=== PATIENT | female | born 1975 | race Caucasian/White ===

== ENCOUNTER 2017-03-19 08:25 | Day surgery (SDC) | payer OTHER ==
[2017-03-12 10:30] VITALS: BMI 26.6
--- NOTE | 2017-03-18 09:41 | HP ---
Admitting History and Physical - Primary Care Physician PCP: Leonidas Lamb - Admission Chief Complaint: Right breast cancer History of Present Illness: 41 year old premenapausal female with strong family H/O breast cancer. The patient herself felt right breast density and underwent mammography and US which showed 1.5x1.5x1.5 cm right breast mass at 11:00 8 cm FN. US core bx 01/2017 showed ductal carcinoma ER/OH positve HEr 2 negative. She has H/O bilateral saline implants. MRI breast 02/07/2017 showed right breast spiculated mass at 11:00 8 cm FN and no contralateral or mutifocal dz. History Source: Patient Limitations to Obtaining History: No Limitations - Past Medical History Pulmonary: Yes: Asthma (related to allergies) ...LMP: 02/28/17 ...: (MADE AWARE URINE SAMPLE NEEDED) ENT: Yes: Other (seasonal allergies) - Past Surgical History Additional Past Surgical History: Bilateral breast augmentation 2002-silicone - Advance Directives Advance Directives: Yes: Health Care Proxy - Smoking History Smoking history: Former smoker Have you smoked in the past 12 months: No - Alcohol/Substance Use Hx Alcohol Use: Yes (social) Home Medications - Allergies Allergies/Adverse Reactions: Allergies Allergy/AdvReac Type Severity Reaction Status Date / Time No Known Allergies Allergy Verified 03/12/17 11:03 - Home Medications Home Medications: Ambulatory Orders Albuterol Sulfate Inhaler - [Ventolin Hfa Inhaler -] 1 - 2 inh PO PRN PRN Loratadine [Claritin] 10 mg PO DAILY 03/12/17 Family Disease History - Family Disease History Family Disease History: CA: Grandparent (paternal GM lung ca 56) Other Family History: pat aunt breast ca 55. pat [place] breast ca 60. pat GF CRC 52. mat aunt x2 breast ca 62 and 74 Physical Examination Constitutional: Yes: Well Nourished Breast(s): Yes: Other (fairly ptotic D cups with augmentation implants palpable 1.5 cm density right breast upperr outer quadrant of right implant no left breast densities no adenopathy bilaterally) Problem List - Problems (1) Breast cancer, right breast Code(s): C50.911 - MALIGNANT NEOPLASM OF UNSP SITE OF RIGHT FEMALE BREAST Qualifiers: Breast location: upper outer quadrant of breast Patient sex: female Qualified Code(s): C50.411 - Malignant neoplasm of upper-outer quadrant of right female breast Assessment/Plan Right breast wide excision ,mammogram needle localization, lymphoscintogram , sentenel node biopsy, possible axillary node dissection , intraop radiaition and exchange of implant /Dr Callaway
[2017-03-19] MEDS ORDERED: ISOSULFAN BLUE 10 MG/ML VIAL SQ ONE (13:04)
[2017-03-19] MEDS ORDERED: GENTAMICIN SO4 80 MG/2 ML VIAL ONE (13:04)
[2017-03-19] MEDS ORDERED: GUM MASTIC/STORAX/MSAL/ALCOHOL 1 DRP DROPSBTL MC ONE (13:04)
[2017-03-19] MEDS ORDERED: LIDOCAINE HCL 1%, 10 MG/ML (20ML VIAL) ONE (13:04)
[2017-03-19] MEDS ORDERED: ceFAZolin SODIUM 1 GM VIAL ONE ×2 (13:04→13:08)
[2017-03-19] MEDS ORDERED: PROPOFOL 20 ML ONE ×2 (13:05)
[2017-03-19] MEDS ORDERED: MIDAZOLAM HCL 2 MG/2 ML SINGLE DOSE VIAL ONE (13:05)
[2017-03-19] MEDS ORDERED: LIDOCAINE HCL/PF 2% SDV 5ML VIAL ONE (13:42)
[2017-03-19] MEDS ORDERED: ONDANSETRON 4 MG/2 ML VIAL ONE (13:48)
[2017-03-19] MEDS ORDERED: DEXAMETHASONE SOD PHOSPHATE 4 MG/1 ML VIAL ONE ×2 (13:48→13:49)
[2017-03-19] MEDS ORDERED: KETOROLAC TROMETHAMINE 30 MG/1 ML VIAL IVPUSH PRN (15:14)
[2017-03-19] MEDS ORDERED: DEXTROSE 5%-0.45% SALINE 1,000 ML IV SCH (15:15)
[2017-03-19] MEDS ORDERED: ONDANSETRON 4 MG/2 ML VIAL IVPB PRN (15:55)
[2017-03-19] MEDS ORDERED: DESFLURANE GAS 240 ML BOTTLE IH ONE (16:23)
[2017-03-19] MEDS ORDERED: oxyCODONE HCL 5 MG TABLET PO PRN ×2 (16:54)
[2017-03-19] MEDS ORDERED: KETOROLAC TROMETHAMINE 30 MG/1 ML VIAL ONE (16:54)
[2017-03-19] MEDS ORDERED: PROMETHAZINE HCL 25 MG/1 ML VIAL IVPUSH PRN (16:54)
[2017-03-19 19:15] VITALS: TEMP 98
[2017-03-19] MEDS ORDERED: PROMETHAZINE HCL 25 MG/1 ML VIAL ONE (19:17)
[2017-03-19 19:41] VITALS: BP 136/83; PULSE 72
--- NOTE | 2017-03-20 08:03 | OP ---
DATE OF OPERATION: 03/19/2017 PREOPERATIVE DIAGNOSIS: Right breast cancer. POSTOPERATIVE DIAGNOSIS: Right breast cancer. PROCEDURE: Post lumpectomy, intraoperative radiotherapy for right breast cancer. ATTENDING SURGEON: Leonidas Lamb MD ANTISQUEAK APPLIER/RADIATION ONCOLOGIST: Anthony Sibley MD ANESTHESIA: General. COMPLICATIONS: None. INDICATIONS: The patient is a 41-year-old woman with a biopsy-proven infiltrating ductal carcinoma, stage 1A, T1c, N0, M0, ER/MT-positive, HER2-negative right breast cancer. She is entered on the target B study. DESCRIPTION OF PROCEDURE: Dr. Lamb performed right lumpectomy and sentinel node biopsy, which he has dictated. After excision of additional margins, the cavity was sized at 4.5-cm diameter spherical applicator. The applicator was placed in the operative cavity at the 11 o'clock aspect of the right breast, and the surrounding breast tissue were cinched around the applicator with a Vicryl pursestring suture. A clinical and ultrasound simulation was performed to ensure that the applicator was located within the operative bed with close apposition to the surrounding breast tissue to the surface of the applicator. Saline-soaked gauze was placed between the skin and breast tissue to ensure adequate separation between the skin and the applicator. Ultrasound measurements confirm the minimum separation of 1.66 cm at the 12 o'clock aspect of the applicator. The applicator was pulled away from the chest wall to minimize dose to the underlying organs. Shielding material was placed over the breast to reduce scattered radiation. The patient received a dose of 20 Gy prescribed at 0 mm from the applicator surface with a 50KV x-ray using the Intrabeam system. Prior to the treatment, the system was double-checked by our physicist with appropriate quality control head measures. The time required for the treatment was 36 minutes and 30 seconds at a dose rate of .550 Gy per minute. When the treatment was completed, a survey of the patient in the room confirmed that the Intrabeam source was off. There were no complications or unexpected interruptions. Dr. Lamb removed the radiation applicator from the patient and completed the surgery. Patient will be discharged to the recovery room and follow up with us in a few weeks. ANTHONY SIBLEY M.D. [id number] cc: Leonidas Lamb MD, and Megan Higgins MD [facility]
--- NOTE | 2017-03-20 13:01 | OP ---
DATE OF OPERATION: 03/19/2017 PREOPERATIVE DIAGNOSIS: Right breast cancer, upper outer quadrant. POSTOPERATIVE DIAGNOSIS: Right breast cancer, upper outer quadrant. PROCEDURE: Right breast partial mastectomy with mammographic needle localization and right axillary sentinel lymph node biopsy with intraoperative radiation as part of the Targit-B trial with mastopexy and implant exchange by plastic surgery. ANESTHESIA: General laryngeal mask airway anesthesia. PRIMARY SURGEON: Margi Leiva MD TENSIONING MACHINE OPERATOR: JUANA Sarah PRIMARY SURGEON FOR THE RIGHT BREAST MASTOPEXY AND IMPLANT EXCHANGE WITH PLACEMENT OF ALLODERM: Margi Callaway MD HIS TENSIONING MACHINE OPERATOR: JUANA Paez COMPLICATIONS: There were no complications. INDICATIONS: Briefly, the patient is a 41-year-old premenopausal white female of [place] and [place] descent. She has a family history with 2 maternal aunts who had breast cancer at ages 62 and 74. She also has a paternal aunt who had breast cancer at age 55 and a paternal great-aunt had breast cancer at age 60. The patient was found to have a mass in the upper outer aspect of the right breast back in December of 2016. Mammography and ultrasound confirmed a 1.5 cm density in the right breast at the 11 o'clock region. An ultrasound core biopsy showed a low grade infiltrative ductal cancer which was ER/AK positive and HER2/mj negative. MRI showed localized disease measuring about 1.2 cm. She did undergo genetic testing in 2012, which was negative. The patient was advised on a wide excision, and given the fact that she had prior augmentation surgery, she was seen by plastic surgery, and the patient would have slight reduction at the time of the surgery, and we decided on an implant exchange since we knew she would require radiation, and decided also to place AlloDerm. The patient was told about intraoperative radiation and was a candidate for the Targit-B trial, which she was entered in and was randomized intraoperative radiation. DESCRIPTION OF PROCEDURE: The patient was brought in for the surgery on March 19, 2017, and underwent a mammographic needle localization of the clip in question and underwent a lymphoscintigraphy at [place] and was brought to the holding area at [place]. In the holding area, site verification was made and informed consent was obtained. She did sign the consent for the Targit-B trial and was marked preoperatively by the plastic surgeon. She was brought into the operating room and laid on the OR table in the supine position. Venodynes were placed on the lower extremities. She received 1 g of Ancef prior to incision. She underwent general laryngeal mask airway anesthesia, and 3 mL of lymphazurin blue were injected intradermally and peritumorally around the needle localization site, and massage was instituted, and both breasts were sterilely prepped and draped in the usual fashion. At this point, the sentinel node was first performed. An incision was made just above the hair-bearing area of the right axilla, and dissection was undertaken, and a blue hot node was easily found in the level 1 region of the right axilla with a 10-second gamma count of 2,280. No other blue or hot nodes were found, and background count after removal of the sentinel node was 347. Hemostasis was achieved. At this point, the wide excision was undertaken. We did this through a reduction pattern incision, which was performed by Dr. Callaway and using that incision, we were able to undermine up to the needle localization site in the upper outer aspect of the right breast and performed a large wide excision to help with the mastopexy. The tissue was completely removed from around the wire all the way down to the pectoralis major muscle in the upper outer aspect of the right breast. The tissue was removed with the wire in the middle of the specimen. It was oriented with a long-lateral short-superior suture, and the specimen radiograph showed removal of the clip in question with the cancer in the middle of the specimen. Separate margins were taken on the superior, inferior, medial, lateral, anterior, as well as deep and extra deep margins with sutures marking the biopsy cavity side. Piece of the muscle was taken posteriorly. At this point, intraoperative radiation was performed using a 4.5-cm Intrabeam device. The breast tissue was pursestringed around the device which was placed in the wound at the area of the excised cancer. Ultrasound was used to confirm the device was more than 1 cm from all quadrants of the skin. Intraoperative radiation was then performed for about 35 minutes without complications, and the device was removed. Hemostasis was achieved, and the wound was copiously irrigated. At this point, Dr. Callaway performed the mastopexy. He had already removed the implant prior to the radiation, and that was replaced with a new implant and AlloDerm was placed over the defect in the pectoralis major muscle. The AlloDerm was sutured into the pectoralis major muscle by plastic surgery. A drain was placed in the area of the wide excision, brought through a separate stab incision on the lateral aspect of the chest well, and sutured in place using 3-0 nylon sutures. The wound closure will be dictated separately by Dr. Callaway as well as the mastopexy. The patient was placed in a surgical bra postoperatively, and laryngeal mask airway tube was removed, and she will be recovered and discharged home the same day once discharge criteria are met. She is to follow up in the office in 1 week for formal wound evaluation and pathology check. Estimated blood loss was about 50 mL, and she was hemodynamically stable throughout with correct sponge and needle counts at the end of the case. MARGI LEIVA M.D. [id number]
--- NOTE | 2017-03-21 15:56 | PATH ---
Surgical Pathology Report Patient Name: [facility]. Rec. #: [id number] /Age/Gender: 1975 (Age: 41) / F Account: [id number] Location: [facility] AMBULATORY Taken: 03/19/2017 Received: 03/20/2017 Reported: 03/21/2017 Physicians: Leonidas Lamb M.D. Specimen(s) Received A: SENTINEL LYMPH NODE #1 RIGHT AXILLA B: RIGHT BREAST WIDE EXCISON C: RIGHT BREAST SUPERIOR MARGIN D: RIGHT BREAST INFERIOR MARGIN E: RIGHT BREAST MEDIAL MARGIN F: RIGHT BREAST LATERAL MARGIN G: RIGHT BREAST ANTERIOR MARGIN H: RIGHT BREAST DEEP MARGIN I: RIGHT BREAST SUPERIOR DEEP MARGIN J: RIGHT BREAST EXPLANT Clinical History Invasive right breast cancer UOQ Final Diagnosis A. LYMPH NODE, RIGHT AXILLARY SENTINEL NODE #1, EXCISION: ONE BENIGN LYMPH NODE (0/1) BY STANDARD HEMATOXYLIN AND EOSIN STAIN (MULTIPLE LEVELS EXAMINED). B. RIGHT BREAST, WIDE EXCISION WITH WIRE LOCALIZATION: INVASIVE DUCTAL CARCINOMA, CHRIS GRADE 1 OF 3 (TUBULE SCORE 1 OF 3, NUCLEAR GRADE 2 OF 3, MITOTIC SCORE 1 OF 3, TOTAL 4 OF 9), MEASURING 1.4 CM IN GREATEST DIMENSION. DUCTAL CARCINOMA IN SITU (DCIS), INTERMEDIATE NUCLEAR GRADE, CRIBRIFORM AND SOLID PATTERNS WITH CENTRAL NECROSIS AND ASSOCIATED CALCIFICATION PRESENT (EXTENSIVE INTRADUCTAL COMPONENT). INVASIVE DUCTAL CARCINOMA IS 0.4 CM FROM THE DEEP AND ANTERIOR ASPECTS OF THIS SPECIMEN (SEE SPECIMENS C-I FOR FINAL MARGINS). DCIS IS 0.5 CM FROM THE DEEP AND ANTERIOR ASPECTS OF THIS SPECIMEN (SEE SPECIMENS C-I FOR FINAL MARGINS). CHANGES CONSISTENT WITH PRIOR BIOPSY SITE PRESENT. NO LYMPH-VASCULAR INVASION IDENTIFIED. MINUTE FIBROADENOMA PRESENT. REMAINING BREAST TISSUE WITH FIBROCYSTIC CHANGES INCLUDING STROMAL FIBROSIS, DUCTAL DILATATION, AND CYSTIC APOCRINE METAPLASIA. C. RIGHT BREAST, SUPERIOR MARGIN, EXCISION: BENIGN BREAST TISSUE. D. RIGHT BREAST, INFERIOR MARGIN, EXCISION: SMALL FIBROADENOMA, AND FIBROCYSTIC CHANGES INCLUDING STROMAL FIBROSIS, DUCTAL DILATATION, AND CYSTIC AND METAPLASIA. E. RIGHT BREAST, MEDIAL MARGIN, EXCISION: BENIGN BREAST TISSUE. F. RIGHT BREAST, LATERAL MARGIN, EXCISION: BENIGN BREAST TISSUE WITH FIBROCYSTIC CHANGES INCLUDING STROMAL FIBROSIS AND DUCTAL DILATATION. G. RIGHT BREAST, ANTERIOR MARGIN, EXCISION: BENIGN FIBROFATTY TISSUE. H. RIGHT BREAST, DEEP MARGIN, EXCISION: BENIGN SKELETAL MUSCLE AND ADIPOSE TISSUE. I. RIGHT BREAST, SUPERIOR DEEP MARGIN, EXCISION: BENIGN SKELETAL MUSCLE AND ADIPOSE TISSUE WITH AREAS OF FIBROSIS CONSISTENT WITH BREAST IMPLANT CAPSULE. J. CONVENIENCE STORE CLERK, RIGHT BREAST, REMOVAL: BREAST IMPLANT (GROSS ONLY). Comment: See prior slide review [id number]. Comments Breast Invasive Carcinoma: Surgical Pathology Cancer Case Summary Based on AJCC/UICC TNM, 7th edition Procedure _X__ Excision with image-guided localization Lymph Node Sampling (select all that apply) (required only if lymph nodes are present in the specimen) _X__ [place] lymph node(s) Specimen Laterality _X__ Right Tumor Size: Size of Largest Invasive Carcinoma Greatest dimension of largest focus of invasion over 1 mm: 14 mm Tumor Focality _X__ Single focus of invasive carcinoma Macroscopic and Microscopic Extent of Tumor Skin _X__ Invasive carcinoma does not invade into the dermis or epidermis Nipple _X__ Not applicable (excisions less than total mastectomy) Ductal Carcinoma In Situ (DCIS) _X__ DCIS is present _X__ as a major component (>25% of tumor, extensive intraductal component) Histologic Type of Invasive Carcinoma : _X__ Invasive carcinoma of no special type (ductal, not otherwise specified) Histologic Grade: (Chris Histologic Score) Tubular Differentiation _X__ Score 1 Nuclear Pleomorphism _X__ Score 2 Mitotic Rate _X__ Score 1 Overall Grade _X__ Grade 1: scores of 3, 4, or 5 (well differentiated) Margins _X__ Margins uninvolved by invasive carcinoma (required only if residual invasive carcinoma is present in specimen) Distance from closest margin: Cannot be determined Specify margin: Invasive carcinoma is 4 mm from the anterior and deep aspects of the wide excision (Specimen B), and is not present in the final margin excisions (Specimens C-I) _X__ Margins uninvolved by DCIS (required only if residual DCIS is present in specimen) Distance from closest margin: Cannot be determined Specify margin: DCIS is 5 mm from the anterior and deep aspects of the wide excision (Specimen B), and is not present in the final margin excisions (Specimens C-I) Lymph-Vascular Invasion _X__ Not identified Lymph Nodes Total number of lymph nodes examined (sentinel and nonsentinel): 1 Number of sentinel lymph nodes examined: 1 Number of lymph nodes with macrometastases ( > 2 mm): 0 Number of lymph nodes with micrometastases (>0.2 mm to 2 mm and/or >200cells):0 Number of lymph nodes with isolated tumor cells (=0.2 mm and =200 cells): 0 Extranodal Extension _X__ Not applicable Pathologic Staging (pTNM) Primary Tumor (Invasive Carcinoma): pT1c Regional Lymph Nodes (pN): pN0(sn) Biomarker Studies Results of ER and KS studies performed on this specimen (block B1) at [facility] are as follows: ER (clone [id number] mouse monoclonal antibody by [employer]): ~80% nuclear staining with moderate intensity (Positive). KS (clone16 mouse monoclonal antibody by [employer]) : ~70% nuclear staining with strong to moderate intensity (Positive). Results of Her2 studies will be reported separately in an addendum. Positive and negative controls (internal if applicable) show appropriate results. Formalin fixation and cold ischemic times are within current ASCO/CAP recommendations for ER, KS and Her2 testing. Electronically Signed Martin Arteaga M.D. Addendum Reported: 03/22/2017 Addendum Diagnosis Results of Her2 (IHC) & Ki-67 studies performed on block "B1" at [place], [place] ([id number]) are as follows: Her2 IHC (EP3 from [employer], formerly known as [id number], using [employer] Polymer Refine detection kit): 0 Negative Ki-67. ~20-25% (Intermediate proliferative index) Positive and negative controls (internal if applicable) show appropriate results. Martin Arteaga M.D. Gross Description A. Received in formalin labeled "sentinel node #1 right axilla," is a 2.4 x 1.8 x 0.9 cm cameron, irregular lymph node with attached fat. The specimen is trisected and entirely submitted in 3 cassettes. B. Received in formalin, labeled "right breast wide excision," is a 8.0 x 6.7 x 2.3 cm. cameron-yellow, irregular, portion of fibroadipose tissue with a needle localization wire present. There is a short suture marking the superior aspect and a long suture marking the lateral aspect, per the surgeon. There is no skin or nipple present. The specimen is inked as follows: superior and lateral blue; inferior green; medial yellow; anterior red; deep black. The specimen is serially sectioned from superior to inferior. Sectioning reveals a 1.4 x 1.1 x 1.0 cm cameron, indurated mass at 0.3 cm from the deep margin and 0.4 cm from the anterior margin. The remaining margins appear clear of the mass. The remaining breast parenchyma displays multiple foci of white fibrous tissue. Car Stereo Installer sections are submitted in 9 cassettes as follows: 1-2-one full face section of mass each, with anterior and deep margins; 3-additional mass with anterior and deep margins; 7-2-[id number] fibrous tissue with anterior and deep margins; 6-medial margin; 7-lateral margin; 8-superior margin; 9-inferior margin. Time to formalin fixation: 5 minutes Total formalin fixation time: Approximately 27 hours. C. Received in formalin labeled "superior margin right breast," is a 3.3 x 2.3 x 1.0 cm irregular portion of fibroadipose tissue with a suture marking the biopsy cavity side, per the surgeon. The new margin is inked black and the specimen is serially sectioned. The specimen is entirely submitted in 3 cassettes. D. Received in formalin labeled "inferior margin right breast," is a 2.4 x 1.6 x 0.6 cm irregular portion of fibroadipose tissue with a suture marking the biopsy cavity side, per the surgeon. The new margin is inked black and the specimen is serially sectioned. The specimen is entirely submitted in 3 cassettes. E. Received in formalin labeled "medial margin right breast," is a 2.6 x 1.8 x 0.6 cm irregular portion of fibroadipose tissue with a suture marking the biopsy cavity side, per the surgeon. The new margin is inked black and the specimen is serially sectioned. The specimen is entirely submitted in 3 cassettes. F. Received in formalin labeled "lateral margin right breast," is a 3.1 x 2.0 x 0.5 cm irregular portion of fibroadipose tissue with a suture marking the biopsy cavity side, per the surgeon. The new margin is inked black and the specimen is serially sectioned. The specimen is entirely submitted in 3 cassettes. G. Received in formalin labeled "anterior margin right breast," is a 3.6 x 1.8 x 0.8 cm irregular portion of fibroadipose tissue with a suture marking the biopsy cavity side, per the surgeon. The new margin is inked black and the specimen is serially sectioned. The specimen is entirely and sequentially submitted in 4 cassettes. H. Received in formalin labeled "deep margin right breast," is a 2.3 x 1.6 x 0.7 cm irregular portion of fibroadipose tissue with a suture marking the biopsy cavity side, per the surgeon. The new margin is inked black and the specimen is serially sectioned. The specimen is entirely submitted in 2 cassettes. I. Received in formalin labeled "super deep margin right breast," is a 6.5 x 2.6 x 0.4 cm portion of cameron-yellow fibromembranous tissue. No definitive masses are identified. Car Stereo Installer sections are submitted in 2 cassettes. J. Received fresh labeled "right breast explant," is a 12.5 cm in diameter x 4 cm in depth clear, rubbery, disc-shaped object, consistent with a breast implant. No soft tissue is present. No sections are submitted, gross only. 03/20/2017 [facility]03/20/2017
--- NOTE | 2017-03-21 19:50 | OP ---
DATE OF OPERATION: 03/19/2017 SURGEON: Leonidas Callaway M.D. CELL BUILDER SURGEON: Adelaide Jain PREOPERATIVE DIAGNOSIS: 1. 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 2. Asymmetry of chest wall. POSTOPERATIVE DIAGNOSIS: 1. 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 2. Asymmetry of chest wall. OPERATIVE PROCEDURE: 1. Right breast reconstruction utilizing other technique. 2. Capsulectomy right breast. 3. Removal of saline implant right breast. 4. Replacement of silicone gel implant right breast for reconstruction. 5. Placement of acellular dermal matrix Alloderm for immediate breast reconstruction. OPERATIVE INDICATION: Patient is a young woman who was taken to the operating room by Dr. Leonidas Lamb; this will be a combined dictation with him. The patient presented with a right breast cancer and required mastectomy with intraoperative radiation and reconstruction with the above procedures. The risks and benefits, surgical versus nonsurgical alternatives, as well as material complications were described to the patient preoperatively on multiple occasions, and she agreed to planned procedure. The patient understood that postoperative radiation course would be needed and the ultimate result would be determined after radiation therapy. OPERATIVE PROCEDURE IN DETAIL: The patient was taken to the operating room and after induction of general anesthesia in supine position, Dr. Lamb and I began the operation. After timeout and placement of sterile drapes, the entire chest wall was painted with ChloraPrep solution over its entire extent. At this point, the pattern which was marked in the standing position for outline of a reconstruction with other technique was marked. This area was injected with 1% local lidocaine infusion and 1:100,000 epinephrine. Using a number 42 nipple areolar cutter, the nipple complex was circumscribed. Then I incised the nipple with a number 10 scalpel. The area in the pattern was de-epithelialized above and below the nipple for reconstruction. I then incised the upper pole of the breast carrying it down to the subcutaneous tissue and turned the procedure over to Dr. Lamb. His portion of the operation will be dictated under separate cover where he performed sentinel lymph node biopsy and removal of the breast tissue. Upon completion of Dr. Lamb's portion of the operation, intraoperative radiation therapy was carried out. At this point, the procedure was turned back to me after being finished with Dr. Lamb. At this point, copious irrigation was performed. Hemostasis was meticulously obtained throughout. An incision was made through the pectoralis major muscle in the right upper pole of the upper outer quadrant of the right breast, carrying this down through the pectoralis major down to underlying capsule of the previously placed implant. Incision was made into the capsule itself and a large block of capsule was removed from the upper pole of the breast. The tissue was all sent for pathologic diagnosis. At this point, the implant was removed and also sent for pathological diagnosis. After this was accomplished, an implant was chosen for reconstruction. This implant was then placed into the right breast pocket in the usual fashion. Once this was accomplished, a large sheet of contour perforated Alloderm which had been rehydrated on the back table was soaked and prepared, was inserted into the defect in the pectoralis and capsular area. An underlay of a large sheet of the material was also used in order to prevent capsular contracture in the radiation patient. This was inset with sutures using 3-0 Vicryl sutures in interrupted fashion, packing the material and the defect and underlay. When this was accomplished, tissues were advanced and closed upon themselves. A tissue re-arrangement and reconstruction with other technique was carried out by approximating the multiple layers of tissue above the pectoralis major muscle and approximating a new shape to the breast, elevating into a new position. The tissues were advanced and closed upon themselves in a circumareolar fashion and vertical imbrication sutures were placed on the skin. Multiple layers of 3-0 PDS and 4-0 PDS sutures were placed. When the wounds were completely closed, Steri-Strips, dressing was placed over the breast, and the patient was dressed with a Surgi-Bra and fluff dressing to shape the breast. Good shape and contour was seen. She was awakened, extubated, and transferred to the recovery room in satisfactory condition. LEONIDAS CALLAWAY M.D. [id number]
== END 2017-03-19 19:30 | disposition home or self-care (01) ==
LOC: FASU 08:25
PROVIDERS: ATTEND Surgery Surgical Oncology
PROC: 0HUT0JZ Supplement Right Breast with Synthetic Substitute, Open Approach (ICD-10-PCS; 2017-03-19)
PROC: 0HPT0JZ Removal of Synthetic Substitute from Right Breast, Open Approach (ICD-10-PCS; 2017-03-19)
PROC: 0HRT0JZ Replacement of Right Breast with Synthetic Substitute, Open Approach (ICD-10-PCS; 2017-03-19)
PROC: 0HBT0ZZ Excision of Right Breast, Open Approach (ICD-10-PCS; principal; 2017-03-19 14:03)
PROC: 07B50ZX Excision of Right Axillary Lymphatic, Open Approach, Diagnostic (ICD-10-PCS; 2017-03-19 14:03)
PROC: DMY17ZZ Contact Radiation of Right Breast (ICD-10-PCS; 2017-03-19 14:03)
PROC: 0HRT07Z Replacement of Right Breast with Autologous Tissue Substitute, Open Approach (ICD-10-PCS; 2017-03-19 14:03)
DX: C50.411 Malignant neoplasm of upper-outer quadrant of right female breast (principal); Z80.3 Family history of malignant neoplasm of breast; N65.1 Disproportion of reconstructed breast; N65.0 Deformity of reconstructed breast; Z90.13 Acquired absence of bilateral breasts and nipples; M95.4 Acquired deformity of chest and rib
CPT/HCPCS: 19281; 76641-TC-50; 77290; 77300; 77316; 77332; 77370-TC; 77424; 78195-TC; 84703; 88300-TC; 88307-TC; 88342-TC; 94760; A9541; C9726

== ENCOUNTER 2017-09-19 12:38 | Day surgery (SDC) | payer OTHER ==
[2017-09-18 14:27] VITALS: BMI 25.0
[2017-09-19] MEDS ORDERED: ceFAZolin SODIUM 1 GM VIAL ONE ×2 (13:25→14:06)
[2017-09-19] MEDS ORDERED: EPINEPHrine 1:1,000 1 MG/1 ML - 30ML VIAL (INJECTION) ONE (13:26)
[2017-09-19] MEDS ORDERED: GENTAMICIN SO4 80 MG/2 ML VIAL ONE (13:26)
[2017-09-19] MEDS ORDERED: LIDOCAINE 1%/EPI 1:100000 (20 ML MULTI DOSE VIAL) ONE ×2 (13:26→14:40)
[2017-09-19] MEDS ORDERED: LIDOCAINE HCL 1%, 10 MG/ML (20ML VIAL) ONE (13:26)
[2017-09-19] MEDS ORDERED: ACETAMINOPHEN INJECTION 100 ML IVPB ONE (14:05)
[2017-09-19] MEDS ORDERED: SEVOFLURANE 250 ML BTL ONE (14:05)
[2017-09-19] MEDS ORDERED: DESFLURANE GAS 240 ML BOTTLE IH ONE (14:05)
[2017-09-19] MEDS ORDERED: PROPOFOL 20 ML ONE ×4 (14:06→15:51)
[2017-09-19] MEDS ORDERED: DEXAMETHASONE SOD PHOSPHATE 4 MG/1 ML VIAL ONE (14:06)
[2017-09-19] MEDS ORDERED: ONDANSETRON 4 MG/2 ML VIAL ONE (14:06)
[2017-09-19] MEDS ORDERED: MIDAZOLAM HCL 2 MG/2 ML SINGLE DOSE VIAL ONE ×2 (14:10)
[2017-09-19] MEDS ORDERED: SCOPOLAMINE HYDROBROMIDE 1 PATCH PATCH.TD72 ONE (14:13)
[2017-09-19] MEDS ORDERED: oxyCODONE HCL 5 MG TABLET PO PRN (16:26)
[2017-09-19] MEDS ORDERED: PROMETHAZINE HCL 25 MG/1 ML VIAL IVPUSH PRN (16:26)
[2017-09-19] MEDS ORDERED: ONDANSETRON 4 MG/2 ML VIAL IVPUSH PRN (16:26)
[2017-09-19] MEDS ORDERED: LACTATED RINGERS SOLUTION 1,000 ML IV SCH (16:30)
[2017-09-19 17:10] VITALS: TEMP 98.1
[2017-09-19 17:49] VITALS: BP 120/73; PULSE 77
--- NOTE | 2017-09-20 08:49 | OP ---
DATE OF OPERATION: 09/20/2017 SURGEON: Margi Callaway MD MOTO MIX OPERATOR: JUANA Skinner PREOPERATIVE DIAGNOSIS: Bilateral acquired chest wall deformity, status post mastectomy. POSTOPERATIVE DIAGNOSIS: Bilateral acquired chest wall deformity, status post mastectomy. OPERATIVE PROCEDURE: 1. Right breast reconstruction with other technique. 2. Left breast reconstruction with other technique. 3. Left breast capsulotomy, removal and replacement of left breast implant for reconstruction. 4. Left breast mastopexy for reconstruction. OPERATIVE INDICATIONS: The patient is a young woman who underwent a procedure for breast cancer on the right side, and now presents with a gross asymmetry of the chest wall, requiring the above procedures. The risks and benefits of surgical versus nonsurgical alternatives, as well as the material complications were described to the patient on multiple occasions. OPERATIVE PROCEDURE IN DETAIL: The patient was taken to the operating room. After the induction of general anesthesia in the supine position, both arms were extended and padded. Venodyne boots were placed, and attention was turned to the prepping and draping. After this was accomplished and time-out called, with antibiotics infused, attention was turned to the right breast. The lower portion of the right breast had been marked in the standing position for outline of a large excision and block of tissue removal on the right lower pole of the breast. This breast had previously been radiated for breast cancer. This was injected with 1% local lidocaine anesthesia with 1:200,000 epinephrine down to the skin into the deep subcutaneous tissue at the lower pole. The left breast was also injected for incisions for mastopexy and replacement of her left breast implant for reconstruction. Attention was first turned to the right breast. An incision was made according to the reggie-shaped pattern on the lower breast, incising the skin and subcutaneous tissue down to the deep dermis and breast itself. An excision using electrocautery was carried out in the lower pole of the breast, excising a block of tissue incorporating the breast tissue in the specimen. This tissue was sent for pathologic diagnosis to rule out breast cancer. After copious irrigation and hemostasis was achieved, advancement flaps were created superiorly and inferiorly in order to close the wound. This was accomplished using 2-0 Vicryl sutures in the deep tissue, 3-0 PDS suture on the deep dermis, and a running subcuticular suture with 4-0 Biosyn. At this point attention was turned to the abdominal area. Incisions were made down through the skin into the deep subcutaneous tissue down to the underlying fascia of the abdominal wall. Tissue was then harvested for reconstructive purposes in order to transfer to the right and left breasts independently. This tissue was harvested and transferred to the back table, cleansed and prepared for reconstruction. Attention was turned back to the left breast. An incision was made according to the pattern for mastopexy, circumferentially around the nipple-areolar complex and down to the dermal level. Epitheliazation was carried out circumferentially around the nipple-areolar complex and then tailor-tacked into a circumvertical mastopexy. The lower incision for previous implant placement was now opened along the course of the incision, deepened down through the subcutaneous tissue down to underlying capsule. I then performed a capsulotomy by opening and removing the implant from its position. The malposition of this implant had been noticed, with a large lateral gutter and too large a space for reconstructive purposes. At this point, after copious irrigation and hemostasis, a capsulorrhaphy was performed using 0 V-Loc suture in a running fashion along the lateral gutter to close off the lateral pocket and centralize the implant. An implant was chosen for reconstructive purposes which matched the opposite breast. This was a Natrelle Inspira Cohesive Breast Implant style SCF, 485 mL. It was placed using the Laureano funnel into the left breast pocket with no-touch technique. The wound was then copiously irrigated with triple antibiotic solution and closed in layers using 2-0 Vicryl on the deep tissues, 3-0 PDS on the dermal tissue and 4-0 Biosyn on subcuticular tissue. Attention was then turned back to the right and left breasts. Tissue from the reconstructive purposes was transferred to the right breast in the superior, lateral, central and medial portions of the right breast, and then the left breast on the superior, medial and inferior portions of the left breast. Tissue appeared to be viable throughout. The wound on the left mastopexy was closed with interrupted 3-0 PDS suture and 4-0 V-Loc suture in a running fashion around the areolar complex and vertically. Good shape and contour were seen in the sitting position. All wounds were dressed sterilely with Dermabond, Steri-Strips, and a compressive dressing. She was awakened, extubated and transferred to the recovery room in a Surgi-Bra. She tolerated the procedure well. MARGI CALLAWAY M.D. [id number]
== END 2017-09-19 17:35 | disposition home or self-care (01) ==
LOC: FASU 12:38
PROVIDERS: ATTEND Plastic Surgery
PROC: 0HRV07Z Replacement of Bilateral Breast with Autologous Tissue Substitute, Open Approach (ICD-10-PCS; principal; 2017-09-19 14:38)
PROC: 0HQU0ZZ Repair Left Breast, Open Approach (ICD-10-PCS; 2017-09-19 14:38)
PROC: 0HNU0ZZ Release Left Breast, Open Approach (ICD-10-PCS; 2017-09-19 14:38)
DX: M95.4 Acquired deformity of chest and rib (principal); Z90.13 Acquired absence of bilateral breasts and nipples
CPT/HCPCS: 84703